=== PATIENT | female | born 1970 | race Two or more races ===

== ENCOUNTER 2019-02-13 20:48 | Emergency (ER) | payer SELFPAY ==
[~2019-02-13] VITALS: Ht 154.9 cm; Wt 80.3 kg
--- NOTE | 2019-02-13 21:10 | NUR ---
PT CAME TO EMERGENCY DEPT. COMPLAINING OF SORE THROAT, COUGH, CONGESTION AND SOB X 3 DAYS. PT AXO4. RESPIRATIONS EVEN AND UNLABORED. 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 PT TACHYCARDIC ON THE MONITOR. PT SPEAKING IN FULL SENTENCES. PENDING EVAL FROM ER .
[2019-02-13] MEDS ORDERED: predniSONE 20 MG TABLET PO ONE (21:30)
[2019-02-13] MEDS ORDERED: ALBUTEROL FS 2.5 MG/3 ML VIAL.NEB NEB ONE (21:30)
[2019-02-13] MEDS ORDERED: IPRATROPIUM NEB FS 0.5 MG/2.5 ML AMPUL.NEB NEB ONE (21:30)
[2019-02-13] MEDS ORDERED: predniSONE 20 MG TABLET ONE (21:31)
[2019-02-13] MEDS ORDERED: IPRATROPIUM NEB FS 0.5 MG/2.5 ML AMPUL.NEB ONE ×2 (21:39→21:45)
[2019-02-13] MEDS ORDERED: ALBUTEROL FS 2.5 MG/3 ML VIAL.NEB ONE (21:39)
--- NOTE | 2019-02-13 21:42 | NUR ---
RT AT BEDSIDE.
--- NOTE | 2019-02-13 22:36 | NUR ---
Patient discharged to home in stable condition. Written and verbal after care instructions given. Patient verbalizes understanding of instruction.
[2019-02-13 22:37] VITALS: BP 133/72
== END 2019-02-13 22:38 | disposition home or self-care (01) ==
LOC: ER 20:53
DX: J06.9 Acute upper respiratory infection, unspecified (principal); J45.909 Unspecified asthma, uncomplicated
CPT/HCPCS: 71045; 87070; 87804 ×2; 87880; 94644; 99285; J7512; 86403-TC; 87400